=== PATIENT | male | born 1995 | race Caucasian/White ===

== ENCOUNTER 2017-04-07 10:12 | Emergency (ER) | payer SELFPAY ==
[~2017-04-07] VITALS: Ht 167.6 cm; Wt 61.4 kg
[2017-04-07] MEDS ORDERED: KETOROLAC10 MG PO (11:54)
[2017-04-07 12:05] VITALS: BP 123/76
== END 2017-04-07 11:57 | disposition home or self-care (01) ==
LOC: ED 10:12
DX: S46.011A Strain of muscle(s) and tendon(s) of the rotator cuff of right shoulder, initial encounter (principal); S40.011A Contusion of right shoulder, initial encounter; V18.0XXA Pedal cycle driver injured in noncollision transport accident in nontraffic accident, initial encounter; Y92.009 Unspecified place in unspecified non-institutional (private) residence as the place of occurrence of the external cause
CPT/HCPCS: A4565

== ENCOUNTER 2018-03-26 06:58 | Emergency (ER) | payer SELFPAY ==
[~2018-03-26] VITALS: Ht 167.6 cm; Wt 61.4 kg
[~2018-03-26 06:58] MED LIST: KETOROLAC10 MG PO
[2018-03-26 07:30] LABS: BASO # 0.1 (0.02-0.10); EOS # 0.3 (0.04-0.40); EOS % 3.2 % (0.0-4.0); HEMATOCRIT 43.1 % (42.0-52.0); HEMOGLOBIN 14.7 g/dL (13.5-18.0); LYMPH# 2.5 (1.50-4.00); MEAN CELL VOLUME 85 fl (78-100); MEAN CORPUSCULAR HEMOGLOBIN 29 pg (27-31); MEAN CORPUSCULAR HGB CONC 34 g/dL (33-37); MEAN PLATELET VOLUME 9.7 fl (7.4-10.4); MONO # 0.7 (0.20-0.80); NEU # 4.8 (1.40-6.50); PLATELET COUNT 238 K/mm3 (130-400); RED BLOOD COUNT 5.07 M/mm3 (4.20-5.60); RED CELL DISTRIBUTION WIDTH 12.5 % (11.5-14.5); WHITE BLOOD COUNT 8.4 K/mm3 (4.8-10.8)
[2018-03-26 07:47] LABS: ALBUMIN 4.5 g/dL (3.5-5.0); BUN/CREATININE RATIO 15.3 (6.0-26.0); CALCIUM 8.6 mg/dL (8.4-10.2); POTASSIUM 4.3 mmol/L (3.6-5.0); TOTAL BILIRUBIN 0.9 mg/dL (0.2-1.3); TOTAL PROTEIN 7.6 g/dL (6.3-8.2)
[2018-03-26 09:34] LABS: URINE APPEARANCE HAZY; URINE BILIRUBIN NEGATIVE (NEGATIVE); URINE BLOOD TRACE (NEGATIVE); URINE COLOR YELLOW; URINE GLUCOSE NEGATIVE (NEGATIVE); URINE KETONE NEGATIVE (NEGATIVE); URINE NITRATE NEGATIVE (NEGATIVE); URINE PROTEIN(semi-quant) 1+ mg/dL (NEGATIVE); URINE UROBILINOGEN NORMAL (NORMAL)
[2018-03-26 09:35] LABS: URINE LEUKOCYTE ESTERASE 2+ (NEGATIVE); URINE MUCUS PRESENT (NOT PRESENT); URINE WBC >50 /hpf (0-3)
[2018-03-26] MEDS ORDERED: ULTRAM50 M1 PO (09:38)
[2018-03-26] MEDS ORDERED: IBU800 M1 PO (09:38)
[2018-03-26 10:03] VITALS: BP 117/60
== END 2018-03-26 10:06 | disposition home or self-care (01) ==
LOC: ED 06:58
PROVIDERS: Physician Assistant
DX: S92.324A Nondisplaced fracture of second metatarsal bone, right foot, initial encounter for closed fracture (principal); S92.334A Nondisplaced fracture of third metatarsal bone, right foot, initial encounter for closed fracture; S92.344A Nondisplaced fracture of fourth metatarsal bone, right foot, initial encounter for closed fracture; S00.411A Abrasion of right ear, initial encounter; S40.811A Abrasion of right upper arm, initial encounter; S30.811A Abrasion of abdominal wall, initial encounter; M54.2 Cervicalgia; S29.9XXA Unspecified injury of thorax, initial encounter; V48.5XXA Car driver injured in noncollision transport accident in traffic accident, initial encounter; Y92.410 Unspecified street and highway as the place of occurrence of the external cause; R78.1 Finding of opiate drug in blood; R78.89 Finding of other specified substances, not normally found in blood
CPT/HCPCS: J1885

== ENCOUNTER 2023-12-19 11:11 | Emergency (ER) | payer SELFPAY ==
[~2023-12-19] VITALS: Ht 167.6 cm; Wt 63.6 kg
[~2023-12-19 11:11] MED LIST changes: +IBU800 M1 PO; +ULTRAM50 M1 PO
[2023-12-19] MEDS ORDERED: Azithromycin 200 MG/5 ML Oral Susp 22.5 ML BOTTLE PO ONE (12:45)
[2023-12-19] MEDS ORDERED: Azithromycin 250 MG TAB PO ONE (13:15)
[2023-12-19 14:00] VITALS: BP 127/77
== END 2023-12-19 15:32 | disposition home or self-care (01) ==
LOC: ED 11:11
DX: N48.5 Ulcer of penis (principal)
CPT/HCPCS: J0696